=== PATIENT | female | born 1985 | race Caucasian/White ===

== ENCOUNTER 2019-05-26 10:04 | Inpatient (IN) | payer BC ==
[2019-05-26 10:45] VITALS: BMI 32.0
[2019-05-26] MEDS ORDERED: Misoprostol 200 MCG TAB PR PRN (10:46)
[2019-05-26] MEDS ORDERED: Lidocaine 1% (PF) 30 ML VIAL SC PRN (10:46)
[2019-05-26] MEDS ORDERED: NS / Oxytocin 40 units/1000ml 1,000 ML IV PRN (10:46)
[2019-05-26] MEDS ORDERED: Butorphanol Tartrate 1 MG/ML VIAL SLOW IVP PRN (10:46)
[2019-05-26] MEDS ORDERED: Ibuprofen 800 MG TAB PO PRN (10:46)
[2019-05-26] MEDS ORDERED: Acetaminophen 500 MG TAB PO PRN (10:46)
[2019-05-26] MEDS ORDERED: Ondansetron PF 4 MG/2 ML Vial IVP PRN ×2 (10:46→13:04)
[2019-05-26] MEDS ORDERED: hydrALAZINE 20 MG/ML VIAL SLOW IVP PRN ×2 (10:46→20:04)
[2019-05-26] MEDS ORDERED: Promethazine HCl 25 MG/ML VIAL IM PRN ×2 (10:46→13:04)
[2019-05-26] MEDS ORDERED: NS w/ Oxytocin 10 units 500 ML IV SCH (11:00)
[2019-05-26 11:08] LABS: Hemoglobin 11.6 g/dL (12.0-16.0); Mean Corpuscular Hemoglobin 30.1 pg (27.0-31.0); Mean Corpuscular Volume 88.6 fL (78.0-98.0); Mean Platelet Volume 9.5 fL (7.4-10.4); Platelet Count 188 thou/uL (130-400); RBC Distribution Width 11.9 % (11.5-14.5); Red Blood Cell (RBC) Count 3.86 mill/uL (4.20-5.40); White Blood Cell (WBC) Count 7.5 thou/uL (4.8-10.8)
[2019-05-26] MEDS: Lactated Ringer's 1,000 ML IV SCH ×2 (11:30→14:00)
[2019-05-26 11:33] LABS: ALT (SGPT) 21 U/L (8-55); AST (SGOT) 20 U/L (5-34); Albumin 2.9 g/dL (3.5-5.0); Alkaline Phosphatase 134 U/L (40-110); Anion Gap 11 mmol/L (10-20); BUN (Urea Nitrogen) 6 mg/dL (7.0-18.7); Bilirubin, Total 0.3 mg/dL (0.2-1.2); Calc. Creatinine Clearance 165 mL/min (70-130); Calcium 8.7 mg/dL (7.8-10.44); Carbon Dioxide 20 mmol/L (22-29); Chloride 107 mmol/L (98-107); Estimated GFR-MDRD Greater than 90; Globulin 2.9 g/dL (2.4-3.5); Glucose 74 mg/dL (70-105); Potassium 3.8 mmol/L (3.5-5.1); Protein, Total 5.8 g/dL (6.0-8.3); Sodium 134 mmol/L (136-145)
[2019-05-26 11:49] LABS: HBSAg Index 0.17 S/CO (0-0.99); Hep B Surf Ag Non-Reactive S/CO (NonReactive)
[2019-05-26] MEDS ORDERED: Fentanyl 4 mcg/Bup 0.1% Cadd 100 ML ONE (12:31)
[2019-05-26] MEDS ORDERED: Lactated Ringer's 500 ML IV PRN (13:04)
[2019-05-26] MEDS ORDERED: Naloxone HCl 0.4 mg/ml Vial IVP PRN ×2 (13:04)
[2019-05-26] MEDS ORDERED: ePHEDrine/0.9% NaCl/PF SYRINGE 50 mg/10 ml SLOW IVP PRN (13:04)
[2019-05-26] MEDS ORDERED: diphenhydrAMINE 50 MG/ML VIAL IVP PRN (13:04)
[2019-05-26] MEDS ORDERED: Acetaminophen 325 MG TAB PO PRN (13:04)
[2019-05-26] MEDS ORDERED: Fentanyl 4 mcg/Bupivacaine 0.1% Cassette 100 ML EPIDURAL SCH (13:15)
[2019-05-26] MEDS ORDERED: Communication Order-Pharmacy FS SCH (13:15)
[2019-05-26] MEDS ORDERED: Ondansetron PF 4 MG/2 ML Vial ONE (13:43)
[2019-05-26] MEDS ORDERED: Calcium Carbonate 500 MG ChewTAB PO PRN (14:13)
[2019-05-26] MEDS ORDERED: Bupivacaine 0.25% HCL 30 ML VIAL ONE (15:00)
[2019-05-26 19:03] LABS: Syphilis Antibody Nonreactive (Nonreactive); Syphilis Antibody Index 0.05 S/CO (<1.00 Non-Reactive)
--- NOTE | 2019-05-26 19:55 | PDOC.OPDEL ---
OB Operative/Delivery Note Delivery Dr/Surgeon: Reggie Pre-Delivery Diagnosis: medically indicated induction Procedure/Post Delivery Dx: spontaneous vaginal delivery Weeks gestation: 37 Anesthesia: epidural - Findings A Sex: male - Additional Findings/Plan Placenta delivered: spontaneous Repaired Obstetrical Laceration: right labial Estimated blood loss: 100ml Post delivery plan: routine recovery (Tight nuchal cord. Clamped and cut to deliver head and shoulder. NICU team called for poor respiratory effort and tone and HR<100. Responded to suction, PPV...)
[2019-05-26] MEDS ORDERED: Preparation H Ointment 28 GM TUBE PR PRN (20:04)
[2019-05-26] MEDS ORDERED: Benzocaine-Menthol 82.5 ML CAN TOP PRN (20:04)
[2019-05-26] MEDS ORDERED: Milk Of Magnesia 30 ML UDCUP PO PRN (20:04)
[2019-05-26] MEDS ORDERED: Bisacodyl 10 MG SUPP PR PRN (20:04)
[2019-05-26] MEDS ORDERED: Lanolin Ointment 7 GM TUBE TOP PRN (20:04)
[2019-05-26] MEDS ORDERED: NS / Oxytocin 40 units/1000ml 1,000 ML IV SCH (20:15)
[2019-05-26] MEDS: traMADol HCl 50 MG TAB PO PRN (22:58)
[2019-05-26] MEDS: Docusate Calcium (SURFAK) 240 MG CAP PO SCH (22:59)
[2019-05-26] MEDS: Ibuprofen 800 MG TAB PO SCH (23:00)
[2019-05-27] MEDS: traMADol HCl 50 MG TAB PO PRN ×2 (05:27→15:24)
[2019-05-27] MEDS: Ibuprofen 800 MG TAB PO SCH ×3 (05:27→21:40)
[2019-05-27] MEDS: Ferrous Sulfate 325 MG TAB PO SCH ×2 (08:14→15:00)
--- NOTE | 2019-05-27 08:29 | PDOC.PP ---
Post Progress Note Post Day #: 1 PO intake tolerated: yes Flatus: yes Ambulation: yes Vital Signs (12 hours) Temp Pulse Resp BP Pulse Ox 05/27/19 08:19 98.0 F 85 20 120/83 98 05/27/19 04:20 98.0 F 84 18 137/80 05/27/19 00:30 86 18 130/79 05/26/19 23:30 98.0 F 89 18 126/81 05/26/19 22:27 97.5 F L 85 18 126/75 Weight Weight 175 lb Result Diagrams: 05/26/19 10:59 05/26/19 10:59 Additional Labs: Post Labs Blood Type O POSITIVE 05/26/19 12:21 Hep Bs Antigen Non-Reactive S/CO (NonReactive) 05/26/19 10:59 - Assessment/Plan Post day 1 from vaginal delivery for gestational hypertension.. Blood pressure normalized. Baby improved...
[2019-05-27] MEDS: Docusate Calcium (SURFAK) 240 MG CAP PO SCH ×2 (08:30→21:40)
[2019-05-27] MEDS: Prenatal Vitamin 1 TAB PO SCH (08:30)
[2019-05-27] MEDS ORDERED: FLU VACC QS2019-20(6MOS UP)/PF 60 MCG/0.5 ML SYRINGE IM ONE ×2 (09:00→11:00)
[2019-05-27] MEDS ORDERED: Adacel (T-DAP) 0.5 ML SYRINGE IM ONE (09:00)
[2019-05-28] MEDS: traMADol HCl 50 MG TAB PO PRN (00:38)
[2019-05-28] MEDS: Ibuprofen 800 MG TAB PO SCH ×2 (06:07→14:22)
--- NOTE | 2019-05-28 06:55 | PDOC.PP ---
Post Progress Note Post Day #: 2 Subjective: Doing well, no new issues PO intake tolerated: yes Flatus: yes Ambulation: yes Vital Signs (12 hours) Temp Pulse Resp BP Pulse Ox 05/28/19 04:08 98.4 F 78 16 129/85 05/27/19 23:50 98.1 F 81 16 130/77 05/27/19 19:17 99.3 F 88 16 129/82 98 Weight Weight 175 lb - Physical Examination General: NAD Cardiovascular: no m/r/g Abdominal: + bowel sounds, lochia, no distention, appropriately TTP Neurological: no gross focal deficits Psychiatric: A&Ox3, normal affect Result Diagrams: 05/26/19 10:59 05/26/19 10:59 Additional Labs: Post Labs Blood Type O POSITIVE 05/26/19 12:21 Hep Bs Antigen Non-Reactive S/CO (NonReactive) 05/26/19 10:59 (1) Vaginal delivery Code(s): O80 - ENCOUNTER FOR FULL-TERM UNCOMPLICATED DELIVERY Status: Acute - Assessment/Plan PPD2...doing well, BPs all OK. No Sxs GHTN. Baby is under Bili lights, mom may stay as B&B if needed
[2019-05-28 08:24] VITALS: BP 138/85; TEMP 98.2
[2019-05-28] MEDS: Docusate Calcium (SURFAK) 240 MG CAP PO SCH (08:55)
[2019-05-28] MEDS: Prenatal Vitamin 1 TAB PO SCH (08:55)
[2019-05-28] MEDS: Ferrous Sulfate 325 MG TAB PO SCH ×2 (08:55→15:23)
== END 2019-05-28 17:35 | disposition home or self-care (01) | DRG 807 ==
LOC: L&D/OP 10:04 → L&D 10:06 → 3SW 22:42
PROVIDERS: ADMIT Obstetrics & Gynecology; ATTEND Obstetrics & Gynecology
PROC: 10E0XZZ Delivery of Products of Conception, External Approach (ICD-10-PCS; principal; 2019-05-26)
PROC: 10907ZC Drainage of Amniotic Fluid, Therapeutic from Products of Conception, Via Natural or Artificial Opening (ICD-10-PCS; 2019-05-26)
PROC: 3E033VJ Introduction of Other Hormone into Peripheral Vein, Percutaneous Approach (ICD-10-PCS; 2019-05-26)
PROC: 0HQ9XZZ Repair Perineum Skin, External Approach (ICD-10-PCS; 2019-05-26)
PROC: 3E02340 Introduction of Influenza Vaccine into Muscle, Percutaneous Approach (ICD-10-PCS; 2019-05-27)
DX: O13.4 Gestational [pregnancy-induced] hypertension without significant proteinuria, complicating childbirth (principal); Z37.0 Single live birth; O70.0 First degree perineal laceration during delivery; O69.1XX0 Labor and delivery complicated by cord around neck, with compression, not applicable or unspecified; Z3A.37 37 weeks gestation of pregnancy; Z23 Encounter for immunization
CPT/HCPCS: 36415; 80053; 82805; 85027; 86780; 86850; 86900; 86901; 87340; 90471; 90686; G0008; J2405; J2590; S0020

== ENCOUNTER 2022-04-04 11:18 | Outpatient (CLI) | payer OTHER | END 2022-04-04 11:19 | disposition home or self-care (01) | LOC: CTENTCT 11:18 | PROVIDERS: ATTEND Specialist | DX: J32.9 Chronic sinusitis, unspecified (principal) | CPT/HCPCS: 70486 ==

== ENCOUNTER 2022-05-29 08:22 | Day surgery (SDC) | payer OTHER ==
[2022-05-28 12:03] VITALS: BMI 22.8
[2022-05-29] MEDS ORDERED: Scopolamine 1.5 mg/72 hour Patch ONE (09:13)
[2022-05-29] MEDS ORDERED: Oxymetazoline HCl 0.05% (30 ML BOT) ONE ×2 (09:20→10:11)
[2022-05-29] MEDS ORDERED: Acetaminophen 500 MG TAB ONE (09:32)
[2022-05-29 09:43] LABS: BHCG - Serum Negative (NEGATIVE); Pregs Control Background? CLEAR/WHITE (CLR/WHITE); Pregs Control Bar Appear? YES (CONTROL BAR)
[2022-05-29] MEDS ORDERED: Midazolam HCl 2 mg/2 ml Vial ONE (09:48)
[2022-05-29] MEDS ORDERED: Bacitracin Zinc Ointment 30 gm TUBE ONE (10:11)
[2022-05-29] MEDS ORDERED: Lidocaine 1% (PF) 30 ML VIAL ONE (10:11)
[2022-05-29] MEDS ORDERED: EPINEPHrine 1 MG/ML AMP ONE (10:11)
[2022-05-29] MEDS ORDERED: fentaNYL Citrate/PF 100 MCG/2 ML SYRINGE ONE (10:19)
[2022-05-29] MEDS ORDERED: PROPOFOL 200 MG/20 ML VIAL ONE (10:33)
[2022-05-29] MEDS ORDERED: Rocuronium Bromide 10 MG/ML (10ML VIAL) ONE (10:33)
[2022-05-29] MEDS ORDERED: Lidocaine 1% MPF 2 ML VIAL ONE (10:33)
[2022-05-29] MEDS ORDERED: Glycopyrrolate 0.2 MG/ML 5 ML SYRINGE ONE (10:33)
[2022-05-29] MEDS ORDERED: Ondansetron PF 4 MG/2 ML Vial ONE (10:33)
[2022-05-29] MEDS ORDERED: NEOSTIGMINE 3 MG/3 ML SYR 3 MG/3 ML SYRINGE ONE (10:33)
[2022-05-29] MEDS ORDERED: Dexamethasone 20 MG/5 ML VIAL ONE (10:33)
[2022-05-29] MEDS ORDERED: Meperidine HCl/PF 25 MG/ML VIAL ONE (11:30)
[2022-05-29] MEDS ORDERED: Fentanyl 100 MCG/2 ML VIAL ONE (11:46)
[2022-05-29] MEDS ORDERED: Hydrocodone-Acetamin 15 ML UDCUP ONE (12:50)
[2022-05-29] MEDS ORDERED: Ondansetron ODT 4 MG TAB ONE (13:16)
== END 2022-05-29 13:26 | disposition home or self-care (01) ==
LOC: SDC 08:22
PROVIDERS: ATTEND Specialist
PROC: 09SL8ZZ Reposition Nasal Turbinate, Via Natural or Artificial Opening Endoscopic (ICD-10-PCS; principal; 2022-05-29)
PROC: 09SM0ZZ Reposition Nasal Septum, Open Approach (ICD-10-PCS; principal; 2022-05-29)
DX: J34.2 Deviated nasal septum (principal); J34.3 Hypertrophy of nasal turbinates; J30.1 Allergic rhinitis due to pollen; J30.81 Allergic rhinitis due to animal (cat) (dog) hair and dander
CPT/HCPCS: 84703; 85014; J0171; J1100; J2001; J2175; J2250; J2405; J2704; J3010; Q0162